=== PATIENT | female | born 1965 | race Caucasian/White ===

== ENCOUNTER 2017-02-09 19:17 | Day surgery (SDC) | payer BC ==
[2017-02-09 20:20] LABS: BASO % 0.3 % (0-2); EOS % 0.6 % (0-7); EOSINOPHIL ABSOLUTE COUNT 0.1 tho/cmm (0.0-0.7); HCT-HEMATOCRIT 42.9 % (34.0-49.0); HGB-HEMOGLOBIN 14.9 gm/dl (12.0-15.5); IMMATURE GRANULOCYTES ABSOLUTE 0.01 tho/cmm (0-0.03); IMMATURE GRANULOCYTES PERCENT 0.1 % (0-0.3); LYMPH % 22.6 % (20-45); MCH (MEAN CORPUSCULAR HGB) 33.3 pg (28.0-32.0); MCHC MEAN CORPUSCULAR HGB CONC 34.7 % (32.0-36.0); MEAN PLATELET VOLUME 9.9 cmc (9.4-12.4); MONO % 9.6 % (0-12); MONOCYTE ABSOLUTE COUNT 0.9 tho/cmm (0.0-1.2); NEUTROPHILS % 66.8 % (40-80); PLATELET COUNT 302 tho/cmm (150-450); RED BLOOD COUNT 4.47 mil/cmm (4.00-5.20); RED CELL DISTRIBUTION WIDTH 12.8 % (12.4-16.4)
[2017-02-09 20:39] LABS: ALB/GLOB RATIO 0.9 (0.8-2.0); ALBUMIN 3.9 g/dl (3.5-5.0); ALKALINE PHOSPHATASE 98 U/L (33-138); ALT/SGPT 30 U/L (12-78); AMYLASE 41 U/L (20-90); ANION GAP 14 mmol/L (0-20); AST/SGOT 18 U/L (10-40); BILIRUBIN,TOTAL 0.5 mg/dl (0-1.5); BLOOD UREA NITROGEN 9 mg/dl (6-24); CALCIUM 8.9 mg/dl (8.5-10.5); CARBON DIOXIDE-VENOUS 28 mmol/L (22-32); CHLORIDE 105 mmol/l (96-110); CREATININE 0.88 mg/dl (0.50-1.10); GLUCOSE 120 mg/dL (70-110); LIPASE 124 U/L (73-393); POTASSIUM 3.6 mmol/L (3.7-5.1); SODIUM 143 mmol/L (135-145); eGFR VALUE FOR BLACK 88 mL/Min
[2017-02-09] MEDS ORDERED: TRAZODONE HCL50 M1 PO (22:03)
[2017-02-09] MEDS ORDERED: CALAN SR180 M1 PO (22:03)
[2017-02-09 23:11] LABS: URINE BILIRUBIN NEGATIVE (NEG); URINE BLOOD NEGATIVE (NEG); URINE GLUCOSE (UA) NEGATIVE (NEG); URINE KETONE MODERATE (NEG); URINE LEUKOCYTE ESTERASE POSITIVE (NEG); URINE NITRITE NEGATIVE (NEG); URINE PROTEIN NEGATIVE (NEG)
[2017-02-09 23:13] LABS: URINE APPEARANCE CLEAR; URINE COLOR PALE YELLOW
[2017-02-09 23:26] LABS: URINE BACTERIA 1+; URINE EPITHELIAL CELLS 0-1 /[HPF] (0-10); URINE RBC 0 /[HPF] (0-5); URINE WBC 0-1 /[HPF] (0-5)
[2017-02-10 04:47] LABS: BASO % 0.2 % (0-2); EOS % 0.1 % (0-7); HGB-HEMOGLOBIN 13.4 gm/dl (12.0-15.5); IMMATURE GRANULOCYTES ABSOLUTE 0.01 tho/cmm (0-0.03); IMMATURE GRANULOCYTES PERCENT 0.1 % (0-0.3); LYMPH % 13.8 % (20-45); LYMPH ABSOLUTE COUNT 1.5 tho/cmm (0.8-4.5); MCH (MEAN CORPUSCULAR HGB) 32.3 pg (28.0-32.0); MCHC MEAN CORPUSCULAR HGB CONC 33.5 % (32.0-36.0); MCV (MEAN CELL VOLUME) 96.4 fl (82.0-96.0); MEAN PLATELET VOLUME 9.9 cmc (9.4-12.4); MONO % 6.7 % (0-12); MONOCYTE ABSOLUTE COUNT 0.7 tho/cmm (0.0-1.2); NEUTROPHIL ABSOLUTE COUNT 8.6 tho/cmm (1.6-8.0); NEUTROPHIL-AUTOMATED 8.6 tho/cmm (1.6-8.0); NEUTROPHILS % 79.1 % (40-80); PLATELET COUNT 281 tho/cmm (150-450); RED BLOOD COUNT 4.15 mil/cmm (4.00-5.20); WHITE BLOOD COUNT 10.8 tho/cmm (4.0-10.0)
[2017-02-10 05:10] LABS: PROTHROMBIN TIME 11.8 SECONDS (9.0-13.6)
[2017-02-10 05:16] LABS: ANION GAP 12 mmol/L (0-20); BLOOD UREA NITROGEN 6 mg/dl (6-24); CARBON DIOXIDE-VENOUS 24 mmol/L (22-32); CHLORIDE 110 mmol/l (96-110); CREATININE 0.59 mg/dl (0.50-1.10); GLUCOSE 127 mg/dL (70-110); POTASSIUM 4.1 mmol/L (3.7-5.1); SODIUM 142 mmol/L (135-145); eGFR VALUE FOR BLACK >90 mL/Min
[2017-02-11] MEDS ORDERED: HYDROCODON-ACE1 EA16 PO (11:46)
[2017-02-11] MEDS ORDERED: TYLENOL325 M2 PO (11:46)
[2017-02-11] MEDS ORDERED: COLACE100 M1 PO (11:47)
[2017-02-11] MEDS ORDERED: PROTONIX40 M2 PO (11:48)
== END 2017-02-11 13:20 ==
LOC: EDMED 19:17 → EMR2 02-10 00:35 → CAR1 02-10 00:36 → ORW 02-10 09:22 → PACU 02-10 11:18 → CAR1 02-10 12:50
PROVIDERS: Internal Medicine; Physician Assistant
PROC: 0FT44ZZ Resection of Gallbladder, Percutaneous Endoscopic Approach (ICD-10-PCS; principal; 2017-02-09)
DX: K80.12 Calculus of gallbladder with acute and chronic cholecystitis without obstruction (principal); I10 Essential (primary) hypertension; M17.11 Unilateral primary osteoarthritis, right knee; E11.9 Type 2 diabetes mellitus without complications; F41.9 Anxiety disorder, unspecified; F32.9 Major depressive disorder, single episode, unspecified; G47.00 Insomnia, unspecified; K59.00 Constipation, unspecified; D72.829 Elevated white blood cell count, unspecified; K21.9 Gastro-esophageal reflux disease without esophagitis; Z79.899 Other long term (current) drug therapy; Z90.711 Acquired absence of uterus with remaining cervical stump; Z98.890 Other specified postprocedural states
CPT/HCPCS: G0378; J0690; J1170; J1644; J2270; J2405; J7030; Q9967